=== PATIENT | female | born 1970 | race Caucasian/White ===

== ENCOUNTER → 2016-12-12 | Outpatient (CLI) | payer OTHER ==
--- NOTE | 2016-12-12 17:51 | RADIOLOGY REPORT (SQ) ---
EXAM DESCRIPTION: MRI LT UPPER EXTREMITY WITHOUT COMPLETED DATE/TIME: 12/12/2016 1:43 pm REASON FOR STUDY: PAIN IN LEFT FOREARM (M79.632) M79.632 PAIN IN LEFT FOREARM COMPARISON: None. TECHNIQUE: Left upper extremity proximal forearm and elbow images acquired and stored on PACS. Multi planar images to include fat sensitive sequences as T1, fluid sensitive sequences as T2/STIR, cartila ge sensitive sequences as FSPD, and gradient echo sequences. LIMITATIONS: None. FINDINGS: BONE MARROW: No alteration of signal to suggest marrow replacement or edema. No occult fra cture. No large osteophytes. JOINT EFFUSION: No elbow joint effusion. No loose bodies. ARTICULAR SURFACES: Normal. MEDIAL COLLATERAL LIGAMENT COMPLEX: Intact without edema or tear. MEDIAL EPICONDYLE AND COMMON FLEXOR TENDON: No tendinopathy. No partial or full-thickness tear. LATERAL COLLATERAL LIGAMENT: Intact without edema or tear. LATERAL EPICONDYLE AND COMMON EXTENSOR TENDON: No tendinopathy. No partial or full-thickness tear. LATERAL ULNAR COLLATERAL LIGAMENT: Intact without evidence for tear. BICEPS TENDON: Intact. No partial or full-thickness tendon tear. No muscle edema. TRICEPS TENDON: Intact. LEFT PROXIMAL FOREARM SOFT TISSUES: No masses or edema. OTHER: No other significant finding. IMPRESSION: NORMAL MRI OF THE ELBOW AND LEFT FOREARM. TECHNICAL DOCUMENTATION: JOB ID: [id number] [employer]- All Rights Reserved
== END ==
LOC: RAD 12:25
PROVIDERS: ATTEND Orthopaedic Surgery Foot and Ankle Surgery
DX: M79.632 Pain in left forearm (principal)